=== PATIENT | male | born 1985 | race Caucasian/White ===

== ENCOUNTER → 2021-04-23 11:25 | Outpatient (CLI) | payer SELFPAY ==
[2021-04-23 08:44] VITALS: BMI 27.5
--- NOTE | 2021-04-23 09:00 | VAS_PTH ---
PATIENT: REID PAN LOC: [facility] U#:[id number] AGE/SX: 40/M ROOM: RE04/23/[address]: Dr. Julio Cesar Villanueva MD : [id number] BED: DIS: SPEC #: [id number] RECD: 04/23/21 10:24 STATUS: NORMA GEOVANNI #: [id number] ECHO: 04/23/21 09:[address]: Julio Cesar Villanueva DEPT: SURGICAL PATHOLOGY RECD BY: William Chao ENTERED: 04/23/21 11:30 SP TYPE: VAS OTHR DR: Dr. Jose Groves MD Tissues: A - Vas deferens, NOS B - Vas deferens, NOS Procedures: Surgery Specimen Level II HEADER OPERATION: Bilateral partial vasectomy PRE-OP DIAGNOSIS: Sterilization TISSUE SUBMITTED: A ? Left vas deferens, B ? Right vas deferens MICROSCOPIC DIAGNOSIS A. Left vas deferens, partial vasectomy: Completely transected segment of vas deferens, no pathologic diagnosis. B. Right vas deferens, partial vasectomy: Completely transected segment of vas deferens, no pathologic diagnosis. LAKESHA:kamila 04/24/2021 MICROSCOPIC DESCRIPTION Slides are reviewed. GROSS DESCRIPTION A - Received is one container designated left vas deferens. The specimen consists of a tubular segment of abad soft tissue measuring 1 cm in length and 0.2 cm in diameter. The entire specimen is submitted in one cassette. It will be sectioned at the time of embedding. B - Received is one container designated right vas deferens. The specimen consists of a tubular segment of abad soft tissue measuring 0.6 cm in length and 0.1 cm in diameter. The entire specimen is submitted in one cassette. It will be sectioned at the time of embedding. / LAKESHA:kamila 04/23/21 TC:4 CPT: 22169 x2
== END ==
PROVIDERS: PCP Family Medicine; Visit Provider Surgery
DX: Z30.2 Encounter for sterilization (principal)
CPT/HCPCS: 88302

== ENCOUNTER → 2021-05-26 10:54 | Outpatient (CLI) | payer SELFPAY ==
[2021-04-23 08:44] VITALS: BMI 27.5
[2021-05-26 14:22] LABS: Semen Analysis Post Vas ABSENT
== END ==
PROVIDERS: PCP Family Medicine; Referring Provider Surgery; Visit Provider Surgery
DX: Z98.52 Vasectomy status (principal); Z30.09 Encounter for other general counseling and advice on contraception
CPT/HCPCS: 89321

== ENCOUNTER → 2021-06-01 11:27 | Outpatient (CLI) | payer SELFPAY ==
[2021-04-23 08:44] VITALS: BMI 27.5
[2021-06-02 13:06] LABS: Semen Analysis Post Vas REVIEWED
== END ==
PROVIDERS: PCP Family Medicine; Referring Provider Surgery; Visit Provider Surgery
DX: Z98.52 Vasectomy status (principal); Z30.09 Encounter for other general counseling and advice on contraception
CPT/HCPCS: 89321

== ENCOUNTER → 2021-06-18 15:29 | Outpatient (CLI) | payer SELFPAY ==
[2021-04-23 08:44] VITALS: BMI 27.5
[2021-06-19 14:07] LABS: Semen Analysis Post Vas ABSENT
== END ==
PROVIDERS: PCP Family Medicine; Visit Provider Surgery
DX: Z98.52 Vasectomy status (principal)
CPT/HCPCS: 89321

== ENCOUNTER → 2021-07-30 14:07 | Outpatient (CLI) | payer SELFPAY ==
[2021-07-30 15:31] LABS: Semen Analysis Post Vas ABSENT
== END ==
LOC: LAB 14:09 → LABSPEC 14:10
PROVIDERS: PCP Family Medicine; Referring Provider Surgery; Visit Provider Surgery
DX: Z98.52 Vasectomy status (principal)
CPT/HCPCS: 89321

== ENCOUNTER → 2021-08-31 11:34 | Outpatient (CLI) | payer SELFPAY ==
--- NOTE | 2021-08-31 11:39 | US_ITS ---
STUDY: SCROTUM ULTRASOUND REASON FOR EXAM: Male, 36 years old. Testicular mass TECHNIQUE: Ultrasound evaluation of the scrotum was performed with color Doppler and static alatorre-scale imaging. COMPARISON: None. FINDINGS: RIGHT TESTICLE INTRATESTICULAR: There is a normal size of the right testicle. The right testicle measures 4.5 x 2.2 x 2.7 cm. There is a homogenous echotexture. There is normal arterial and normal venous vascularity. There is no demonstrated right testicular mass or cyst. EXTRATESTICULAR: The epididymis is normal in size. There is normal vascularity of the epididymis. There is no demonstrated epididymal cystic structure. There is a small hydrocele. There is no demonstrated varicocele. There is no demonstrated extratesticular mass or cyst. LEFT TESTICLE INTRATESTICULAR: There is a normal size of the left testicle. The left testicle measures 4.3 x 2.2 x 2.8 cm. There is a homogenous echotexture. There is normal arterial and normal venous vascularity. There is no demonstrated left testicular mass or cyst. EXTRATESTICULAR: The epididymis is normal in size. There is normal vascularity of the epididymis. There is a 0.6 x 0.4 x 0.6 cm left epididymal cyst. There is a small hydrocele. There is no demonstrated varicocele. US/Testicular with Arterial Flow IMPRESSION: Bilateral hydroceles. 0.6 x 0.4 x 0.6 cm left epididymal cyst. Electronically Signed: Mary Jenkins MD at 13:03 EDT Tel , Service support ,
== END ==
PROVIDERS: PCP Family Medicine; Visit Provider Surgery
DX: N50.89 Other specified disorders of the male genital organs (principal)
CPT/HCPCS: 76870; 93976